=== PATIENT | male | born 1960 | race Caucasian/White ===

== ENCOUNTER → 2021-12-15 | Outpatient (CLI) | payer OTHER ==
--- NOTE | 2021-12-15 16:24 | XR ---
EXAMINATION TYPE: Orbit X-Ray Complete Bilateral DATE OF EXAM: 12/15/2021 COMPARISON: None HISTORY: Pre-MRI screening TECHNIQUE: Orbits are examined in 4 views. FINDINGS: No radiopaque foreign bodies in or about the orbits. Osseous structures appear intact. Sella is normal. Paranasal sinuses are clear. No acute fractures ar e evident. IMPRESSION: 1. No radiopaque foreign bodies in or about the orbits to contraindicate MRI
--- NOTE | 2021-12-16 01:07 | MR ---
EXAMINATION TYPE: MR shoulder LT wo con DATE OF EXAM: 12/15/2021 COMPARISON: None HISTORY: Left shoulder pain for years. Multiplanar multiecho imaging of the left shoulder without contrast. There is minor spurring at the AC joint. No significant subacromial impingement. The supraspinatus te ndon appears intact. No retraction. The subscapularis tendon is intact. There is a minimal shoulder joint effusion. Biceps tendon is inta ct. Glenoid aime appear normal. No evidence of a fracture. IMPRESSION: No evidence of rotator cuff tear. There is a mild shoulder joint effusion suggested. Some mild nonspe cific synovitis. Minor spurring and cystic changes at the AC joint.
== END | disposition home or self-care (01) ==
LOC: RADMRIMAIN 17:10
PROVIDERS: ATTEND Family Medicine
DX: Z01.818 Encounter for other preprocedural examination (principal); M65.812 Other synovitis and tenosynovitis, left shoulder; M85.612 Other cyst of bone, left shoulder
CPT/HCPCS: 70030